=== PATIENT | female | born 1970 | race African-American/Black ===

== ENCOUNTER 2021-03-20 07:48 | Emergency (ER) | payer OTHER ==
[~2021-03-20] VITALS: Ht 157.5 cm; Wt 93.4 kg
[2021-03-20 07:50] VITALS: BP 170/97
== END 2021-03-20 08:35 | disposition home or self-care (01) ==
LOC: ER 07:48
DX: M54.31 Sciatica, right side (principal); Z88.0 Allergy status to penicillin